=== PATIENT | male | born 1935 | race Caucasian/White ===

== ENCOUNTER 2024-07-21 13:48 | Emergency (ER) | payer MEDICARE, OTHER, SELFPAY ==
[2024-07-21 14:02] VITALS: BP 146/81; PULSE 66; RESP 18; TEMP 36.7; O2SAT 99; BMI 31.5
--- NOTE | 2024-07-21 14:25 | CTR_ITS ---
PROCEDURE INFORMATION: Exam: CT Abdomen And Pelvis With Contrast Exam date and time: 07/21/2024 4:14 PM Age: 88 years old Clinical indication: Abdominal pain; Generalized; Additional info: Abd pain TECHNIQUE: Imaging protocol: Computed tomography of the abdomen and pelvis with contrast. Radiation optimization: All CT scans at this facility use at least one of these dose optimization techniques: automated exposure control; mA and/or kV adjustment per patient size (includes targeted exams where dose is matched to clinical indication); or iterative reconstruction. Contrast material: OMNI 350; Contrast volume: 100 ml; Contrast route: INTRAVENOUS (IV); COMPARISON: No relevant prior studies available. RADIATION DOSE METRICS: Total DLP (mGy-cm): 778.58 FINDINGS: Lungs: Lung bases are clear. No pleural effusion. Liver: Normal. No mass. Gallbladder and biliary ducts: Normal. No calcified stones. No ductal dilation. Pancreas: Normal. No ductal dilation. Spleen: Normal. No splenomegaly. Adrenal glands: Normal. No mass. Kidneys and ureters: Normal. No hydronephrosis. Stomach and bowel: Unremarkable. No obstruction. No mucosal thickening. Appendix: No evidence of appendicitis. Intraperitoneal space: Unremarkable. No free air. No significant fluid collection. Vasculature: Unremarkable. No abdominal aortic aneurysm. Lymph nodes: Unremarkable. No enlarged lymph nodes. Urinary bladder: Unremarkable as visualized. Reproductive: The prostate gland is abnormally enlarged. Bones/joints: Unremarkable. No acute fracture. Soft tissues: Bilateral inguinal hernias contain mesenteric fat. CT/CT abdomen pelvis w con* [id number] IMPRESSION: 1. No acute findings. 2. Severe prostate enlargement 3. Bilateral inguinal hernia
--- NOTE | 2024-07-21 14:26 | W.ED.ABDPA2 ---
HPI - Abdominal Pain General: Chief Complaint: Abdominal Pain Stated Complaint: abd pain Time Seen by Provider: 07/21/24 14:23 Source: patient Mode of arrival: ambulatory Limitations: no limitations History of Present Illness: 88-year-old male who states that he is having some left lower abdominal pain. States has been having pain for a month he states it seems to come and go he states he has problems with constipation but will take milk of mag and then he has just watery stools after that his last bowel movement was yesterday. States his pains improved currently its mild in nature denies any dysuria denies any vomiting he is sent here from urgent care with concern of possible obstruction Associated Symptoms: Reports constipation; Denies chills, diarrhea, dysuria, fever(s), nausea and vomiting Related Data Home Medications ?Medication ?Instructions ?Recorded ?Confirmed finasteride 5 mg tablet 5 mg PO DAILY 07/21/24 07/21/24 ketorolac 0.5 % eye drops 1 drp ophthalmic (eye) DAILY 07/21/24 07/21/24 prednisolone acetate 1 % eye 1 drp ophthalmic (eye) DAILY 07/21/24 07/21/24 drops,suspension tamsulosin 0.4 mg capsule 0.4 mg PO DAILY 07/21/24 07/21/24 Allergies Allergy/AdvReac Type Severity Reaction Status Date / Time No Known Allergies Allergy Verified 07/21/24 13:02 Review of Systems Const: Denies: fever(s), chills, body aches or change in appetite ENMT: Denies: throat pain or dental pain Card: Denies: chest pain Resp: Denies: dyspnea GI: Reports: abdominal pain and constipation; Denies: nausea, vomiting or diarrhea : Denies: dysuria Musc: Denies: neck pain or back pain Skin/Breast: Denies: rash Neuro: Denies: headache(s) PFSH ED PFSH: Social History Smoking and tobacco/nicotine status: never used tobacco/nicotine Physical Exam Const: COMMON NORMALS: no acute distress, patient oriented x3 and healthy appearing HENMT: COMMON NORMALS: normocephalic and atraumatic HEAD & SCALP: normocephalic and atraumatic Eye: COMMON NORMALS: conjunctivae normal CONJUNCTIVA: Yes conjunctivae normal Neck/C-Spine: COMMON NORMALS: full ROM and supple Chest: COMMONS NORMALS: normal inspection of the chest Resp: COMMON NORMALS: normal respiratory effort Cardio: COMMON NORMALS: regular rate, regular rhythm and No murmurs present (Cardio) RATE: regular rate RHYTHM: regular rhythm GI: COMMON NORMALS: Normal to inspection, nondistended, normoactive bowel sounds present, Soft to palpation and no masses PALPATION: Yes Soft to palpation and Yes Tenderness to palpation present (GI) Details: LLQ Extremity: COMMON NORMALS: normal to inspection and full ROM Neuro: COMMON NORMALS: patient oriented x3, moves all extremities and no focal motor deficits Psych: COMMON NORMALS: mental status grossly normal, Normal thought process present and cooperative THOUGHT PROCESS: Normal thought process present Skin: COMMON NORMALS: no rashes or lesions noted and no wounds GENERAL SKIN EXAM: no rashes or lesions noted Course Vital Signs: Vital signs: Vital Signs Temperature 98.0 F 07/21/24 14:02 Pulse Rate 66 07/21/24 14:02 Respiratory Rate 18 07/21/24 14:02 Blood Pressure 146/81 07/21/24 14:02 Pulse Oximetry 99 07/21/24 14:02 Oxygen Delivery Me thod Room Air 07/21/24 14:02 MDM - Abdominal Pain Medical Decision Making Patient presents here with abdominal pain blood work CT scan shows no acute findings patient is well-appearing here exam at discharge is benign he stable for discharge he is follow-up with PCP and return if worsening he understands agrees to plan. Medical Records I reviewed the patient's medical records. Lab Data I reviewed the patient's lab results. 07/21/24 15:02 07/21/24 15:02 Labs/Radiology: Radiology Impressions Abdomen/Pelvis CT 07/21/24 14:25 IMPRESSION: 1. No acute findings. 2. Severe prostate enlargement 3. Bilateral inguinal hernia Laboratory Results WBC 4.67 10^3/uL (3.29-11.43) 07/21/24 15:02 RBC 4.12 10^6/uL (3.85-5.65) 07/21/24 15:02 Hgb 12.80 g/dL (11.27-16.99) 07/21/24 15:02 Hct 39.3 % (37-53) 07/21/24 15:02 MCV 95.4 fl (82-101) 07/21/24 15:02 MCH 31.1 pg (27-33) 07/21/24 15:02 MCHC 32.6 g/dL (30-55) 07/21/24 15:02 RDW 13.1 % (12.1-15.1) 07/21/24 15:02 Plt Count 231 10^3/cmm (157-399) 07/21/24 15:02 MPV 9.9 fL (7.4-10.4) 07/21/24 15:02 Neut % (Auto) 54.2 % 07/21/24 15:02 Lymph % (Auto) 34.9 % 07/21/24 15:02 [place] % (Auto) 8.8 % 07/21/24 15:02 Eos % (Auto) 1.3 % 07/21/24 15:02 Baso % (Auto) 0.6 % 07/21/24 15:02 Neut # (Auto) 2.53 10^3/uL (1.8-7.7) 07/21/24 15:02 Lymph # (Auto) 1.6 10^3/uL (0.8-4.8) 07/21/24 15:02 [place] # (Auto) 0.4 10^3/uL (0.2-0.9) 07/21/24 15:02 Eos # (Auto) 0.1 10^3/uL (0.0-0.8) 07/21/24 15:02 Baso # (Auto) 0.0 10^3/uL (0.0-0.1) 07/21/24 15:02 Nucleated RBC % (auto) 0 % 07/21/24 15:02 Nucleated RBCs # 0.0 /100WBC 07/21/24 15:02 Sodium 137 mmol/L (136-145) 07/21/24 15:02 Potassium 4.2 mmol/L (3.5-5.1) 07/21/24 15:02 Chloride 105 mmol/L (98-107) 07/21/24 15:02 Carbon Dioxide 25 mmol/L (22-29) 07/21/24 15:02 Anion Gap 11.2 (5-19) 07/21/24 15:02 BUN 7 mg/dL (8-23) L 07/21/24 15:02 Creatinine 0.6 mg/dL (0.7-1.2) L 07/21/24 15:02 GFR Calculation Not Reportable 07/21/24 15:02 Glucose 93 mg/dL (65-115) 07/21/24 15:02 Calculated Osmolality 282 mOsm/kg (285-295) L 07/21/24 15:02 Calcium 8.8 mg/dL (8.5-10.5) 07/21/24 15:02 Total Bilirubin 0.6 mg/dL (0.15-1.2) 07/21/24 15:02 AST 13 U/L (0-40) 07/21/24 15:02 ALT 9 U/L (0-41) 07/21/24 15:02 Alkaline Phosphatase 78 U/L (40-130) 07/21/24 15:02 Total Protein 6.7 g/dL (6.6-8.7) 07/21/24 15:02 Albumin 3.6 g/dL (3.5-5.2) 07/21/24 15:02 Globulin 3.1 g/dL (1.3-4.6) 07/21/24 15:02 Lipase 27 U/L (13-60) 07/21/24 15:02 Urine Color Yellow (Yellow) 07/21/24 16:12 Urine Appearance Clear (CLEAR) 07/21/24 16:12 Urine pH 8.0 (5-7) A 07/21/24 16:12 Ur Specific [place] 1.010 (1.005-1.030) 07/21/24 16:12 Urine Protein Negative (Negative) 07/21/24 16:12 Urine Glucose (UA) Negative (Normal) 07/21/24 16:12 Urine Ketones Negative (Negative) 07/21/24 16:12 Urine Blood Negative (Negative) 07/21/24 16:12 Urine Nitrate Negative (Negative) 07/21/24 16:12 Urine Bilirubin Negative (Negative) 07/21/24 16:12 Urine Urobilinogen 0.2 mg/dL (Negative) 07/21/24 16:12 Ur Leukocyte Esterase Negative (Negative) 07/21/24 16:12 Urine RBC 0-2 /hpf (0-2) 07/21/24 16:12 Urine WBC 0-5 /hpf (0-5) 07/21/24 16:12 Ur Squamous Epith Cells 0-5 /hpf (0-5) 07/21/24 16:12 Amorphous Sediment Not Reportable 07/21/24 16:12 Urine Bacteria None seen /hpf (NONE) 07/21/24 16:12 Hyaline Casts 0-4 /lpf H 07/21/24 16:12 All radiology interpretation(s) finalized by discharge Discharge Plan Discharge Patient Disposition: Home Clinical Impression: Abdominal pain Condition: Stable Prescriptions: No Action tamsulosin 0.4 mg capsule 0.4 mg PO DAILY finasteride 5 mg tablet 5 mg PO DAILY prednisolone acetate 1 % drops,suspension 1 drp ophthalmic (eye) DAILY ketorolac 0.5 % drops 1 drp ophthalmic (eye) DAILY Discharge Orders: Discharge ED (Routine); Ordered 07/21/24 Ordered By: Janette Lundberg Referrals: Rakan Silverio MD [Primary Care Provider] - 4-7 days Discharge Diet: Advance as tolerated Discharge Activity: Resume usual activity Patient Instructions: Abdominal Pain (ED) Print Language: Khmer Coding Level of Care Code ED Billing Collections Specialist for Gera Malhotra
[2024-07-21 15:43] LABS: Basophils % 0.6 %; Eosinophils # 0.1 10^3/uL (0.0-0.8); Eosinophils % 1.3 %; Hematocrit 39.3 % (37-53); Lymphocytes # 1.6 10^3/uL (0.8-4.8); Lymphocytes % 34.9 %; Mean Corpuscular HGB Conc 32.6 g/dL (30-55); Mean Corpuscular Hemoglobin 31.1 pg (27-33); Mean Corpuscular Volume 95.4 fl (82-101); Mean Platelet Volume 9.9 fL (7.4-10.4); Monocytes # 0.4 10^3/uL (0.2-0.9); Monocytes % 8.8 %; Neutrophils # 2.53 10^3/uL (1.8-7.7); Neutrophils % 54.2 %; Nucleated Red Blood Cells % 0 %; Platelet Count 231 10^3/cmm (157-399); Red Blood Count 4.12 10^6/uL (3.85-5.65); Red Cell Distribution Width 13.1 % (12.1-15.1); White Blood Count 4.67 10^3/uL (3.29-11.43)
[2024-07-21 16:00] LABS: Alanine Aminotransferase 9 U/L (0-41); Albumin Level 3.6 g/dL (3.5-5.2); Alkaline Phosphatase 78 U/L (40-130); Anion Gap 11.2 (5-19); Aspartate Amino Transferase 13 U/L (0-40); Blood Urea Nitrogen 7 mg/dL (8-23); Calcium 8.8 mg/dL (8.5-10.5); Carbon Dioxide 25 mmol/L (22-29); Chloride 105 mmol/L (98-107); Creatinine Clr Calc Pharmacy 78.4838; Globulin 3.1 g/dL (1.3-4.6); Glucose 93 mg/dL (65-115); Lipase 27 U/L (13-60); Osmolality Calculated 282 mOsm/kg (285-295); Potassium 4.2 mmol/L (3.5-5.1); Sodium 137 mmol/L (136-145); Total Bilirubin 0.6 mg/dL (0.15-1.2); Total Protein 6.7 g/dL (6.6-8.7)
[2024-07-21 16:33] LABS: Bilirubin Urine Negative (Negative); Blood Urine Negative (Negative); Glucose Urine UA Negative (Normal); Ketones Urine Negative (Negative); Leukocyte Esterase Urine Negative (Negative); Nitrate Urine Negative (Negative); Protein Urine Negative (Negative); Urine Appearance Clear (CLEAR); Urine Color Yellow (Yellow); Urobilinogen Urine 0.2 mg/dL (Negative)
[2024-07-21 16:38] LABS: Add Urine Microscopic? YES; Bacteria Urine None Seen /hpf; Hyaline Casts Urine 0-4 /lpf; RBC Urine 0-2 /hpf (0-2); Squamous Epithelial Cell Urine 0-5 /hpf (0-5); WBC Urine 0-5 /hpf (0-5)
[2024-07-21 17:35] VITALS: BP 156/66; PULSE 62; O2SAT 97
== END 2024-07-21 17:36 | disposition home or self-care (01) ==
PROVIDERS: Emergency Provider Emergency Medicine; PCP Family Medicine
DX: R10.32 Left lower quadrant pain (principal)
CPT/HCPCS: 36415; 74177; 80053; 81001; 83690; 85025; 99284